=== PATIENT | female | born 1950 | race Caucasian/White ===

== ENCOUNTER 2024-09-17 00:11 | Inpatient (IN) | payer OTHER ==
[~2024-09-17] VITALS: Ht 160 cm; Wt 61.2 kg
[2024-09-17] VITALS (7 sets, daily range): BP systolic 108–180; PULSE 62–76; RESP 16–18; TEMP 96.5–98; O2SAT 96–98
[2024-09-17] MEDS: NITROGLYCERIN 1 INCH (GM) OINT. TP ONE (00:53)
[2024-09-17] MEDS: MORPHINE 4 MG INJ. 4 MG/ML VIAL IVP ONE (00:54)
[2024-09-17 01:28] LABS: BASOPHILS % (AUTO) 0.7 % (0.0-2.0); EOSINOPHILS # (AUTO) 0.2 K/uL (0.0-0.4); HEMATOCRIT 32.7 % (36-48); HEMOGLOBIN 11.3 g/dL (12.0-16.0); LYMPHOCYTES # (AUTO) 1.9 K/uL (1.0-5.5); MEAN CORPUSCULAR HEMOGLOBIN 28 pg (27-31); MEAN CORPUSCULAR HGB CONC 35 % (32-36); MEAN CORPUSCULAR VOLUME 81 fL (79.0-98.0); MONOCYTES # (AUTO) 0.3 K/uL (0.0-1.0); MONOCYTES % (AUTO) 6.7 % (1.7-9.3); NEUTROPHILS # (AUTO) 2.6 K/uL (1.8-7.7); NEUTROPHILS % (AUTO) 51.6 % (40.0-70.0); PLATELET COUNT (AUTO) 208 K/uL (130-430); RED BLOOD CELL COUNT(AUTO) 4.03 MIL/uL (4.2-6.2); RED CELL DISTRIBUTION WIDTH 12.5 % (9.0-15.0); WHITE BLOOD COUNT (AUTO) 5.1 K/uL (4.8-10.8)
[2024-09-17 01:50] LABS: ALANINE AMINOTRANSFERASE 43 U/L (12-78); ALBUMIN 4.1 g/dL (3.4-4.8); ANION GAP 8 (5-15); ASPARTATE AMINOTRANSFERASE 32 U/L (10-37); BILIRUBIN,DIRECT 0.1 mg/dL (0.0-0.3); CALCIUM 8.9 mg/dL (8.4-11.0); CARBON DIOXIDE 28 mmol/L (23-29); CHLORIDE 105 mmol/L (98-107); CREATININE 1.36 mg/dL (0.55-1.30); GLUCOSE 187 mg/dL (74-106); POTASSIUM 4.1 mmol/L (3.5-5.1); SODIUM SERUM 141 mmol/L (136-145); TOTAL BILIRUBIN 0.4 mg/dL (0.0-1.0); TOTAL PROTEIN, SERUM 6.9 g/dL (6.4-8.3); UREA NITROGEN, BLOOD 40 mg/dL (8-21)
[2024-09-17] MEDS: ENOXAPARIN SODIUM 60 MG/0.6 ML SYRINGE SUBCUT ONE (04:00)
[2024-09-17] MEDS ORDERED: MORPHINE 2 MG/ML INJ. SYRINGE IVP PRN (04:15)
[2024-09-17] MEDS ORDERED: ONDANSETRON HCL 4 MG/2 ML VIAL IVP PRN (04:15)
[2024-09-17] MEDS ORDERED: NITROGLYCERIN 0.4 MG TAB.SUBL SL PRN (04:15)
[2024-09-17] MEDS ORDERED: ATOR20TA64 PO (04:29)
[2024-09-17] MEDS ORDERED: INSU3INS9 SUBCUT (04:29)
[2024-09-17] MEDS ORDERED: LOSA1TAB40 PO (04:29)
[2024-09-17] MEDS ORDERED: METF-381 PO (04:29)
[2024-09-17] MEDS ORDERED: FENO134C19 PO (04:29)
[2024-09-17] MEDS ORDERED: LORazepam 2 MG/ML VIAL IVP PRN (06:30)
[2024-09-17] MEDS ORDERED: DEXTROSE 50% JECT 50 ML DISP.SYRIN IVP PRN (06:30)
[2024-09-17 08:21] LABS: PROTHROMBIN TIME 10.3 SECS (9.5-12.5)
[2024-09-17 08:34] LABS: HEMOGLOBIN A1C 6.9 % (<5.7)
[2024-09-17 08:36] LABS: ALANINE AMINOTRANSFERASE 41 U/L (12-78); ALBUMIN 3.9 g/dL (3.4-4.8); ANION GAP 10 (5-15); ASPARTATE AMINOTRANSFERASE 31 U/L (10-37); CALCIUM 9.1 mg/dL (8.4-11.0); CARBON DIOXIDE 28 mmol/L (23-29); CHLORIDE 104 mmol/L (98-107); CHOLESTEROL 142 mg/dL (<200); CREATININE 1.13 mg/dL (0.55-1.30); GLUCOSE 101 mg/dL (74-106); HDL CHOLESTEROL 38 mg/dL (>55); POTASSIUM 4.2 mmol/L (3.5-5.1); SODIUM SERUM 142 mmol/L (136-145); THYROID STIMULATING HORMONE 1.33 uIu/mL (0.34-4.82); TOTAL BILIRUBIN 0.5 mg/dL (0.0-1.0); TOTAL PROTEIN, SERUM 6.7 g/dL (6.4-8.3); TRIGLYCERIDES 194 mg/dL (30-150); UREA NITROGEN, BLOOD 38 mg/dL (8-21)
[2024-09-17 10:04] LABS: BILIRUBIN,URINE NEGATIVE (NEGATIVE); BLOOD, URINE NEGATIVE (NEGATIVE); CLARITY/URINE CLEAR (CLEAR); COLOR,URINE YELLOW (YELLOW); GLUCOSE,URINE NEGATIVE (NEGATIVE); KETONES,URINE NEGATIVE (NEGATIVE); LEUKOCYTE ESTERASE ,URINE TRACE (NEGATIVE); NITRITE, URINE POSITIVE (NEGATIVE); PROTEIN URINE NEGATIVE (NEGATIVE); UROBILINOGEN,URINE 0.2 (0.2-1.0)
[2024-09-17 10:24] LABS: BACTERIA,URINE MANY /HPF (None Seen); RBC,URINE NONE SEEN /HPF (0-3); WBC,URINE 0-3 /HPF (0-3)
[2024-09-17 10:33] LABS: BASOPHILS % (AUTO) 0.8 % (0.0-2.0); EOSINOPHILS # (AUTO) 0.1 K/uL (0.0-0.4); EOSINOPHILS % (AUTO) 2.4 % (0.0-4.0); HEMATOCRIT 32.6 % (36-48); HEMOGLOBIN 10.8 g/dL (12.0-16.0); LYMPHOCYTES # (AUTO) 1.9 K/uL (1.0-5.5); MEAN CORPUSCULAR HEMOGLOBIN 27 pg (27-31); MEAN CORPUSCULAR HGB CONC 33 % (32-36); MEAN CORPUSCULAR VOLUME 81 fL (79.0-98.0); MONOCYTES # (AUTO) 0.4 K/uL (0.0-1.0); MONOCYTES % (AUTO) 7.6 % (1.7-9.3); NEUTROPHILS # (AUTO) 2.4 K/uL (1.8-7.7); NEUTROPHILS % (AUTO) 49.2 % (40.0-70.0); PLATELET COUNT (AUTO) 208 K/uL (130-430); RED BLOOD CELL COUNT(AUTO) 4.01 MIL/uL (4.2-6.2); RED CELL DISTRIBUTION WIDTH 12.7 % (9.0-15.0); WHITE BLOOD COUNT (AUTO) 4.8 K/uL (4.8-10.8)
[2024-09-17] MEDS: ASPIRIN 81 MG TAB.CHEW PO SCH (10:39)
[2024-09-17 10:40] LABS: BARBITURATE, URINE NEGATIVE (NEG <=200); BENZODIAZEPINE, URINE NEGATIVE (NEG <=150); CANNABINOID, URINE NEGATIVE (NEG <=50); COCAINE, URINE NEGATIVE (NEG <=150); METHAMPHETAMINES SCREEN,URINE NEGATIVE (NEG <=500); PHENCYCLIDINE SCREEN,URINE NEGATIVE (NEG <=25); URINE AMPHETAMINE NEGATIVE (NEG <=500); URINE METHADONE NEGATIVE (NEG <=200)
[2024-09-17] MEDS: LOSARTAN POTASSIUM 50 MG TABLET (COZAAR) PO SCH (10:40)
[2024-09-17 10:41] LABS: OPIATE, URINE POSITIVE (NEG <=100); URINE OXYCODONE SCREEN NEGATIVE (NEG <=100)
[2024-09-17] MEDS: ATORVASTATIN 20 MG TABLET PO SCH (10:41)
[2024-09-17 10:45] LABS: UR TRICYCLIC ANTIDEPRESSANTS NEGATIVE (NEG <=300)
[2024-09-17] MEDS ORDERED: *HEPARIN PER PHARMACY XX ONE (11:30)
[2024-09-17] MEDS ORDERED: METOPROLOL TARTRATE 50 MG TABLET PO ONE (12:30)
[2024-09-17] MEDS ORDERED: HEPARIN SODIUM,PORCINE 2000 UNITS/0.4 ML BOLUS IVP PRN (13:00)
[2024-09-17] MEDS: HEPARIN 25,000 UNITS in 250 ML PREMIX IV PRN (15:26)
[2024-09-17] MEDS: HEPARIN SODIUM,PORCINE 3000 UNITS/0.6 ML BOLUS IVP PRN (15:39)
[2024-09-17] MEDS: cefTRIAXone 1 GM in D5W 50 ML IV SCH (17:00)
[2024-09-17] MEDS: INSULIN LISPRO SLIDING SCALE 100 UNITS/ML, 3 ML VIAL (humaLOG) SUBCUT PRN (17:59)
[2024-09-17] MEDS: METOPROLOL SUCCINATE 25 MG TAB.SR.24H (TOPROL XL) PO ONE (18:01)
[2024-09-17] MEDS: ACETAMINOPHEN 500 MG TABLET PO PRN (20:25)
[2024-09-17] MEDS ORDERED: METOPROLOL TARTRATE 50 MG TABLET PO SCH (21:00)
[2024-09-17] MEDS ORDERED: ZOLPIDEM TARTRATE 5 MG TABLET PO PRN (21:15)
[2024-09-18] VITALS: BP_SYST 145; PULSE 61; RESP 18; TEMP 97; O2SAT 97
[2024-09-18 07:01] LABS: BASOPHILS # (AUTO) 0.1 K/uL (0.0-0.2); EOSINOPHILS # (AUTO) 0.2 K/uL (0.0-0.4); EOSINOPHILS % (AUTO) 3.5 % (0.0-4.0); HEMATOCRIT 32.6 % (36-48); HEMOGLOBIN 10.8 g/dL (12.0-16.0); LYMPHOCYTES # (AUTO) 2.6 K/uL (1.0-5.5); LYMPHOCYTES % (AUTO) 49.4 % (20.5-51.5); MEAN CORPUSCULAR HEMOGLOBIN 27 pg (27-31); MEAN CORPUSCULAR HGB CONC 33 % (32-36); MEAN CORPUSCULAR VOLUME 81 fL (79.0-98.0); MONOCYTES # (AUTO) 0.4 K/uL (0.0-1.0); MONOCYTES % (AUTO) 6.9 % (1.7-9.3); NEUTROPHILS # (AUTO) 2.1 K/uL (1.8-7.7); NEUTROPHILS % (AUTO) 39.2 % (40.0-70.0); PLATELET COUNT (AUTO) 200 K/uL (130-430); RED BLOOD CELL COUNT(AUTO) 4.03 MIL/uL (4.2-6.2); RED CELL DISTRIBUTION WIDTH 12.4 % (9.0-15.0); WHITE BLOOD COUNT (AUTO) 5.3 K/uL (4.8-10.8)
[2024-09-18 07:18] LABS: ANION GAP 8 (5-15); CALCIUM 9.1 mg/dL (8.4-11.0); CARBON DIOXIDE 28 mmol/L (23-29); CHLORIDE 107 mmol/L (98-107); CREATININE 1.26 mg/dL (0.55-1.30); GLUCOSE 138 mg/dL (74-106); POTASSIUM 4.2 mmol/L (3.5-5.1); SODIUM SERUM 143 mmol/L (136-145); UREA NITROGEN, BLOOD 36 mg/dL (8-21)
[2024-09-18 07:58] LABS: ALBUMIN 3.6 g/dL (3.4-4.8); BILIRUBIN,DIRECT 0.1 mg/dL (0.0-0.3); TOTAL BILIRUBIN 0.4 mg/dL (0.0-1.0); TOTAL PROTEIN, SERUM 6.4 g/dL (6.4-8.3)
[2024-09-18 08:00] VITALS: BP_SYST 120; PULSE 65; RESP 16; TEMP 98; O2SAT 96
[2024-09-18 08:15] VITALS: BP_SYST 120; PULSE 65; RESP 16; TEMP 98; O2SAT 96
[2024-09-18] MEDS ORDERED: ASPIRIN 325 MG TABLET PO SCH (09:00)
[2024-09-18] MEDS: ASPIRIN 81 MG TAB.CHEW PO SCH (09:10)
[2024-09-18] MEDS: METOPROLOL SUCCINATE 25 MG TAB.SR.24H (TOPROL XL) PO SCH (09:11)
[2024-09-18 12:09] VITALS: BP_SYST 131; PULSE 67; RESP 16; TEMP 97.8; O2SAT 100
[2024-09-18] MEDS ORDERED: ASA81 PO (13:24)
[2024-09-18] MEDS ORDERED: LIP20 PO (13:24)
[2024-09-18] MEDS ORDERED: METO-304 PO (13:24)
[2024-09-18 16:32] VITALS: BP_SYST 145; PULSE 65; RESP 18; TEMP 97.5; O2SAT 99
[2024-09-18 20:00] VITALS: BP_SYST 143; PULSE 59; RESP 18; TEMP 96.8; O2SAT 97
[2024-09-18] MEDS: INSULIN GLARGINE 100 UNITS/ML, 10 ML VIAL SUBCUT SCH (21:19)
[2024-09-19] VITALS: BP_SYST 135; PULSE 62; RESP 18; TEMP 97; O2SAT 98
[2024-09-19 06:39] LABS: ANION GAP 7 (5-15); BASOPHILS % (AUTO) 0.7 % (0.0-2.0); CALCIUM 9.4 mg/dL (8.4-11.0); CARBON DIOXIDE 31 mmol/L (23-29); CHLORIDE 106 mmol/L (98-107); CREATININE 1.34 mg/dL (0.55-1.30); EOSINOPHILS # (AUTO) 0.2 K/uL (0.0-0.4); EOSINOPHILS % (AUTO) 3.6 % (0.0-4.0); GLUCOSE 144 mg/dL (74-106); HEMOGLOBIN 11.6 g/dL (12.0-16.0); LYMPHOCYTES % (AUTO) 49.9 % (20.5-51.5); MEAN CORPUSCULAR HEMOGLOBIN 27 pg (27-31); MEAN CORPUSCULAR HGB CONC 33 % (32-36); MEAN CORPUSCULAR VOLUME 80 fL (79.0-98.0); MONOCYTES # (AUTO) 0.4 K/uL (0.0-1.0); MONOCYTES % (AUTO) 6.6 % (1.7-9.3); NEUTROPHILS # (AUTO) 2.4 K/uL (1.8-7.7); NEUTROPHILS % (AUTO) 39.2 % (40.0-70.0); PLATELET COUNT (AUTO) 226 K/uL (130-430); POTASSIUM 4.5 mmol/L (3.5-5.1); RED BLOOD CELL COUNT(AUTO) 4.36 MIL/uL (4.2-6.2); RED CELL DISTRIBUTION WIDTH 12.6 % (9.0-15.0); SODIUM SERUM 144 mmol/L (136-145); UREA NITROGEN, BLOOD 37 mg/dL (8-21); WHITE BLOOD COUNT (AUTO) 6.1 K/uL (4.8-10.8)
[2024-09-19 07:53] VITALS: BP_SYST 131; PULSE 61; RESP 16; TEMP 97.6; O2SAT 97
== END 2024-09-19 08:19 | disposition short-term general hospital (02) | DRG 281 ==
LOC: SED 00:11 → STU 04:09
PROVIDERS: ADMIT Internal Medicine; ATTEND Internal Medicine
DX: I21.4 Non-ST elevation (NSTEMI) myocardial infarction (principal); N17.9 Acute kidney failure, unspecified; N39.0 Urinary tract infection, site not specified; E11.9 Type 2 diabetes mellitus without complications; I35.0 Nonrheumatic aortic (valve) stenosis; I25.10 Atherosclerotic heart disease of native coronary artery without angina pectoris; E78.5 Hyperlipidemia, unspecified; I10 Essential (primary) hypertension; Z90.49 Acquired absence of other specified parts of digestive tract; Z79.899 Other long term (current) drug therapy
CPT/HCPCS: 36415; 70450-TC; 71045; 80048; 80053; 80061; 80076; 80307; 81000; 81001; 81015; 82948; 83037; 83880; 84443; 84484; 85025; 85610; 85730; 87086; 93005; 93306; 99285; G0378; J0696; J1644; J1815; J2270; J7040; J7050; J7060